=== PATIENT | female | born 1990 | race Two or more races ===

== ENCOUNTER 2025-02-20 15:28 | Emergency (ER) | payer MEDICAID, SELFPAY ==
[2025-02-20 15:29] VITALS: BMI 40.6
[2025-02-20 15:39] VITALS: BP 160/83; PULSE 70; RESP 18; TEMP 36.8; O2SAT 100
--- NOTE | 2025-02-20 16:29 | XR_ITS ---
Examination: Lumbar spine 3 views Technique: AP lateral coned lateral lower lumbar spine 3 views Date and time: February 20, 2025, 1635 hrs. Indications: Sudden onset lower back pain beginning today. Findings: There is no true lateral view of the lumbar spine, but films are severely obliqued Mild disc narrowing L5-S1 No spondylolisthesis Impression: Nondiagnostic study Recommend follow-up true lateral view of the lumbar spine
[2025-02-20 17:08] LABS: Basophils # (Auto) 0.0 Thou/mm3 (0.0-0.2); Basophils % (Auto) 1 % (0-2.5); Eosinophils # (Auto) 0.1 Thou/mm3 (0.0-0.5); Eosinophils % (Auto) 2 % (0-10); Hematocrit 37.5 % (36.0-46.0); Hemoglobin 12.0 g/dL (12.0-16.0); Immature Granulocytes Auto 0.01 Thou/mm3 (0.00-0.00); Lymphocytes # (Auto) 2.4 Thou/mm3 (1.0-4.8); Lymphocytes % (Auto) 39 % (10-50); Mean Corpuscular HGB Conc 32.0 g/dl (31.0-37.0); Mean Corpuscular Hemoglobin 25.6 pg (25.0-35.0); Mean Corpuscular Volume 80 fL (80-100); Monocytes # (Auto) 0.4 Thou/mm3 (0.0-0.8); Monocytes % (Auto) 7 % (0-12); Neutrophils # (Auto) 3.2 Thou/mm3 (1.8-7.7); Neutrophils % (Auto) 52 % (37-80); Nucleated Red Blood Cell # 0.00 Thou/mm3 (0.00-0.00); Nucleated Red Blood Cell % 0 /100 WBC (0); Platelet Count 148 Thou/mm3 (140-440); RDW Standard Deviation 40.1 fL (36.4-46.3); Red Blood Count 4.69 Miln/mm3 (4.00-5.20); White Blood Count 6.2 Thou/mm3 (3.6-11.0)
[2025-02-20 17:13] LABS: Collection Type, Urine Clean Catch
--- NOTE | 2025-02-20 17:16 | PD.EDRME ---
Rapid Medical Screening Exam RME Arrival date/time: 02/20/25 15:28 34-year-old female with no known medical history presents to the emergency room with a chief complaint of lumbar back pain x 2 days I have greeted and performed a focused initial assessment of this patient. A comprehensive ED assessment and evaluation of the patient, analysis of all test results, and completion of the medical decision making process will be conducted by additional ED providers. Chief Complaint: Back Pain/Injury Time Seen by Provider: 02/20/25 15:32 Vital signs: Vital Signs Temperature 98.3 F 02/20/25 15:39 Pulse Rate 70 02/20/25 15:39 Respiratory Rate 18 02/20/25 15:39 Blood Pressure 160/83 H 02/20/25 15:39 Pulse Oximetry (%) 100 02/20/25 15:39 Oxygen Delivery Method Room Air 02/20/25 15:39 Vital signs reviewed by provider: Yes
[2025-02-20 17:26] LABS: Bacteria,Urine Rare; Bilirubin,Urine Negative (Negative); Blood,Urine Trace (Negative); Clarity,Urine Turbid (Clear/Hazy); Color,Urine Yellow (Lt Yel-Yel); Glucose, Urine Negative (Negative); Ketones,Urine Negative (Negative); Leukocyte Esterase,Urine Positive (Negative); Nitrite,Urine Negative (Negative); PH,Urine 7.0 (5.0-7.0); Protein,Urine Trace (Neg - Trace); RBC,Urine 9 /hpf (0-3); Specific Gravity,Urine 1.028 (1.001-1.035); Squamous Epithelial Cell,Urine 22 /hpf (0-5); Urobilinogen,Urine Negative mg/dL (0.0-1.0); WBC,Urine 2 /hpf (0-5)
[2025-02-20 17:26] LABS: Alanine Aminotransferase < 7 U/L (10-49); Albumin, Serum 4.2 gm/dL (3.5-5.0); Albumin/Globulin Ratio 1.7 (1.2-2.2); Alkaline Phosphatase 64 U/L (46-116); Anion Gap 10 (7-16); Aspartate Amino Transferase 17 U/L (0-34); BUN/Creatinine Ratio 6 Ratio (12-20); Bilirubin,Total 0.3 mg/dL (0.3-1.2); Blood Urea Nitrogen < 5 mg/dL (9-23); Calcium 9.0 mg/dL (8.3-10.6); Calcium (Corrected) 9.0 mg/dL (8.5-10.1); Carbon Dioxide 25.2 mMol/L (20.0-31.0); Chloride 110 mMol/L (98-107); Creatinine (Component) 0.8 mg/dL (0.6-1.3); Estimated Creatinine Clearance 103.3 mL/min (>60); Globulin 2.5 gm/dL (2.3-3.5); Glucose 92 mg/dL (74-106); Osmolality,Calculated 285 (275-295); Potassium 3.6 mMol/L (3.4-5.1); Sodium 145 mMol/L (136-145); Total Protein 6.7 gm/dL (5.7-8.2); eGFR > 60 See Note
[2025-02-20 17:31] LABS: HCG Qualitative,Urine Negative
--- NOTE | 2025-02-20 18:45 | PD.EDBACK ---
ED Back Injury Pain RME/HPI General Chief Complaint: Back Pain/Injury Stated Complaint: LOWER BACK PAIN Time Seen by Provider: 02/20/25 15:32 Arrival date/time: 02/20/25 15:28 RME / HPI RME / HPI Narrative: 34-year-old female with no known medical history presents to the emergency room with a chief complaint of lumbar back pain x 2 days. Described as dull ache, severity moderate. Patient denies any trauma or fall denies any fever denies any dysuria denies any saddle anesthesia denies any bladder incontinence denies any bowel incontinence. No medication was taken prior to arrival. Related Data Previous Rx's ?Medication ?Instructions ?Recorded Hydrocodone/Acetaminophen * (NORCO 1 tab PO Q4H PRN ABDOMINAL PAIN 06/15/14 5/325 *) #30 tabs ferrous sulfate 325 mg (65 mg 325 mg PO BID #60 tabs 05/12/23 iron) tablet,delayed release ibuprofen 800 mg tablet 800 mg PO Q8H PRN pain #30 tabs 02/20/25 methocarbamol 500 mg tablet 500 mg PO Q8H #30 tabs 02/20/25 methocarbamol 500 mg tablet 500 mg PO TID #30 tabs 02/20/25 Allergies Allergy/AdvReac Type Severity Reaction Status Date / Time No Known Allergies Allergy Verified 02/20/25 15:29 Review of Systems Review of Systems Narrative Review of Systems: Review of system reviewed and within normal limits except mentioned in HPI ED Exam Narrative Physical exam: VITAL SIGNS: Reviewed. GENERAL APPEARANCE: Alert and interactive, follows commands, no acute distress, HEAD AND FACE: Non-traumatic. ENT: PERRL, pink conjunctivitis, eyelid no trauma, Mucous membrane moist. NECK: Supple, nontender, no nuchal rigidity. CHEST: No tenderness, no crepitus, no paradoxical movement, no retractions. LUNGS: Clear, well ventilated, symmetric, no rales, no wheezing, no ronchi, no stridor, good breath sounds bilaterally. HEART: Regular rate, regular rhythm, no murmur, no gallops. ABDOMEN: Soft, positive bowel sounds, nondistended, no guarding, nontender, no rebound, no masses, RECTAL: Deferred. GENITAL: Deferred. NEUROLOGICAL: Gross motor function intact sensory function intact, Appropriate for age. MUSCULOSKELETAL: low back tenderness, full range of motion. EXTREMITIES: Nontender, full range of motion. SKIN: Color pink, dry, no rash, no lacerations, no abrasions, no contusions. LYMPHATICS: Deferred. Course Quality Measures none Orders Category Date Time Status XR lumbar spine 2-3V Stat Exams 02/20/25 16:29 Completed CBC Stat Lab 02/20/25 16:47 Completed CMP [Comprehensive Metabolic Panel] Stat Lab 02/20/25 16:47 Completed HCG Qualitative,Urine Stat Lab 02/20/25 17:07 Completed UA [Urinalysis] Stat Lab 02/20/25 17:07 Completed Urine Culture Stat Lab 02/20/25 17:07 Received Ketorolac Inj [Toradol Inj] Med 02/20/25 18:47 Discontinued 30 mg IM X1 ONE Vital Signs Vital signs: Vital Signs Temperature 98.3 F 02/20/25 15:39 Pulse Rate 70 02/20/25 15:39 Respiratory Rate 18 02/20/25 15:39 Blood Pressure 160/83 H 02/20/25 15:39 Pulse Oximetry (%) 100 02/20/25 15:39 Oxygen Delivery Method Room Air 02/20/25 15:39 Back Pain / Injury MDM Narrative MDM Narrative:: 34-year-old female with no known medical history presents to the emergency room with a chief complaint of lumbar back pain x 2 days. Described as dull ache, severity moderate. Patient denies any trauma or fall denies any fever denies any dysuria denies any saddle anesthesia denies any bladder incontinence denies any bowel incontinence. No medication was taken prior to arrival. X-ray of the lumbar spine showed possible disc narrowing between L5 and S1. The rest of the labs unremarkable. Results discussed with the patient. Patient is ambulatory further imaging is not needed at this time, patient not showing any cauda equina syndrome. Patient data External records reviewed:: None Clinical information provided by:: patient Social determinants that could affect healthcare access:: none Patient has the following chronic illnesses:: None How is presenting disease/condition affected by chronic disease/condition?: no chronic disease Evaluation data The following diagnostics were reviewed and interpreted by me:: lab results and radiology exam(s) Lab and/or radiology exams considered but not ordered:: None Interpretation Summary: See results MDM Medications / Prescriptions Medications or Prescriptions considered but not ordered:: None Medication administrations:: Medication Administration History Discontinued Medications Ketorolac Tromethamine (Ketorolac Inj 30 Mg/Ml Vial) 30 mg IM X1 ONE Stop: 02/20/25 18:48 Toradol IM Consultations Consultation(s) initiated? (list below): No Diagnosis Differential diagnosis back pain/injury: lumbar radiculopathy and sciatica Most likely diagnosis given after review of the tests above:: Acute low back pain Admission Indicated Admission indicated?: not indicated Explain why admission is indicated or not indicated:: Stable Admission Request Was there a request for admission?: No Disposition Plan Disposition Plan: Discharge Discharge Attestation Discharge Attestation: The patient and all family members were given an opportunity to ask questions and understood the discharge instructions. Discharge instructions specifically effects, indications for sooner follow up or return to the emergency department, and the expected course of current diagnosis. Patient condition: Stable Discharge Plan Plan Patient Disposition: HOME (Self Care) Discharge Disposition comment: stable Prescriptions/Referrals Prescriptions/Med Rec: New methocarbamol 500 mg tablet 500 mg PO Q8H Qty: 30 0RF ibuprofen 800 mg tablet 800 mg PO Q8H PRN (Reason: pain) Qty: 30 0RF methocarbamol 500 mg tablet 500 mg PO TID Qty: 30 0RF No Action Hydrocodone/Acetaminophen * (NORCO 5/325 *) 1 TAB tablet 1 tab PO Q4H PRN (Reason: ABDOMINAL PAIN) Qty: 30 0RF ferrous sulfate 325 mg (65 mg iron) tablet,delayed release (DR/EC) 325 mg PO BID Qty: 60 1RF Referrals: Glenys Beach PA-C [Primary Care Provider] - In 1 week Problem List Clinical Impression: Low back pain Patient/Caregiver Discharge Instructions Discharge Activity: activity as tolerated Education Materials: Back Safety Bed Additional Instructions: Thank you for the opportunity for serving you today. You are stable for discharged . You are advised to: Follow-up with your PCP in 1 to 2 days Return to ED for worsening of symptoms Increase oral fluids Take medication as prescribed Print Language: [place] Stand Alone Forms: Laura Award Info., Patient Portal Info Letter PA/JOSE Supervising Physician SERGIO/JOSE Supervising Physician: MD Mona
[2025-02-20] MEDS: KETOROLAC INJ 30 MG/ML VIAL IM (19:07)
== END 2025-02-20 19:11 | disposition home or self-care (01) ==
PROVIDERS: Nurse Practitioner Family; Emergency Provider Family Medicine; PCP Physician Assistant
DX: M54.50 Low back pain, unspecified (principal)
CPT/HCPCS: 36415; 72100; 80053; 81001; 81025; 85025; 87086; 99283; J1885